=== PATIENT | male | born 1945 | race Caucasian/White ===

== ENCOUNTER 2017-01-21 04:21 | Inpatient (IN) | payer MEDICARE ==
[~2017-01-21] VITALS: Ht 175.3 cm; Wt 125.1 kg
[2017-01-21] MEDS ORDERED: ATOR20TA9 PO (05:25)
[2017-01-21] MEDS ORDERED: METO-99 PO (05:25)
[2017-01-21] MEDS ORDERED: METF500T4 PO (05:26)
[2017-01-21] MEDS ORDERED: TAMS-11 PO (05:27)
[2017-01-21] MEDS ORDERED: ROPI1TAB2 PO (05:27)
[2017-01-21] MEDS ORDERED: ASPI325T4 PO (05:28)
[2017-01-21] MEDS ORDERED: VENL150T PO (05:28)
[2017-01-21] MEDS ORDERED: HYDROcodone/APAP 10/325 MG TABLET ONE (05:42)
[2017-01-21] MEDS ORDERED: HYDROcodone/APAP 5/325 TABLET ONE (05:47)
[2017-01-21] MEDS ORDERED: MORPHINE SULFATE 4 MG/ML, 1ML ONE ×2 (05:54→21:58)
[2017-01-21] MEDS ORDERED: HYDROcodone/APAP 5/325 TABLET PO ONE (06:00)
[2017-01-21] MEDS ORDERED: MORPHINE SULFATE 4 MG/ML, 1ML IVPush ONE (06:00)
[2017-01-21 06:14] LABS: ASPARTATE AMINO TRANSFERASE 36 U/L (15-37); BLOOD UREA NITROGEN 22 mg/dL (7-18)
[2017-01-21] MEDS ORDERED: SODIUM CHLORIDE 0.9% 1,000 ML IV ONE ×2 (07:25→07:28)
[2017-01-21] MEDS ORDERED: SODIUM CHLORIDE FLUSH 10ML SYR IVF PRN (07:30)
[2017-01-21] MEDS ORDERED: HYDROmorphone 1 MG/ML, 1ML IVPush PRN (07:30)
[2017-01-21] MEDS ORDERED: SODIUM CHLORIDE 0.9% 1,000ML IVBOLUS ONE (07:30)
[2017-01-21] MEDS ORDERED: SODIUM CHLORIDE FLUSH 10ML SYR IVF ONE (07:30)
[2017-01-21] MEDS ORDERED: THIAMINE 100 MG in SODIUM CHLORIDE 0.9% 50 ML IVPB ONE (07:30)
[2017-01-21] MEDS ORDERED: ONDANSETRON 2MG/ML, 2ML IVPush ONE (07:30)
[2017-01-21] MEDS ORDERED: ONDANSETRON 2MG/ML, 2ML IVPush PRN ×2 (07:30→08:00)
[2017-01-21] MEDS ORDERED: LORazepam 2 MG/ML, 1ML IVPush PRN (08:00)
[2017-01-21] MEDS ORDERED: BISACODYL 10 MG SUPP PR PRN (08:00)
[2017-01-21] MEDS ORDERED: GLUCAGON 1 MG IM PRN (08:00)
[2017-01-21] MEDS ORDERED: DEXTROSE 50%, 50ML SYRINGE IVPush PRN (08:00)
[2017-01-21] MEDS ORDERED: PROMETHAZINE 25 MG/ML, 1ML IM PRN (08:00)
[2017-01-21] MEDS ORDERED: DEXTROSE 4 GM TAB.CHEW PO PRN (08:00)
[2017-01-21] MEDS ORDERED: METHOCARBAMOL 750 MG TABLET PO PRN (08:30)
[2017-01-21 08:46] LABS: IS PT STATUS REG ER OR PRE ER? YES
[2017-01-21 09:48] VITALS: BP 145/93
[2017-01-21] MEDS: morphine SULFATE 10 MG/ML, 1ML IVPush PRN ×3 (10:15→22:00)
[2017-01-21] MEDS: VENLAFAXINE 75 MG CAP ER PO SCH (10:16)
[2017-01-21] MEDS: LACTATED RINGERS 1,000 ML IV SCH ×3 (10:16→23:50)
[2017-01-21] MEDS: THIAMINE 100 MG in SODIUM CHLORIDE 0.9% 50 ML IV SCH (10:16)
[2017-01-21] MEDS: ROPINIROLE 1MG TABLET PO SCH (10:17)
[2017-01-21] MEDS: ENOXAPARIN 40 MG/0.4 ML SQ SCH (10:17)
[2017-01-21] MEDS: TAMSULOSIN 0.4 MG CAP.ER.24H PO SCH (10:17)
[2017-01-21] MEDS: METOPROLOL TARTRATE 100 MG TABLET PO SCH (10:17)
[2017-01-21] MEDS: SODIUM CHLORIDE FLUSH 10ML SYR IVF SCH ×2 (10:21→21:00)
[2017-01-21 10:52] VITALS: BP 145/93
[2017-01-21] MEDS: INSULIN ASPART 100 UNITS/ML, PEN SQ-INSULIN SCH ×3 (11:00→21:00)
[2017-01-21 11:45] VITALS: BP 122/79
[2017-01-21] MEDS: KETOROLAC 30 MG/1 ML IVPush PRN ×2 (18:01→23:50)
[2017-01-21 20:00] VITALS: BP 144/92
[2017-01-22] MEDS ORDERED: MORPHINE SULFATE 4 MG/ML, 1ML ONE (03:10)
[2017-01-22] MEDS: morphine SULFATE 10 MG/ML, 1ML IVPush PRN ×2 (03:13→21:20)
[2017-01-22 03:35] VITALS: BP 145/97
[2017-01-22 05:38] LABS: BLOOD UREA NITROGEN 21 mg/dL (7-18)
[2017-01-22] MEDS: INSULIN ASPART 100 UNITS/ML, PEN SQ-INSULIN SCH ×4 (07:00→21:00)
[2017-01-22] MEDS: THIAMINE 100 MG in SODIUM CHLORIDE 0.9% 50 ML IV SCH (09:19)
[2017-01-22] MEDS: ROPINIROLE 1MG TABLET PO SCH (09:19)
[2017-01-22] MEDS: METOPROLOL TARTRATE 100 MG TABLET PO SCH (09:19)
[2017-01-22] MEDS: VENLAFAXINE 75 MG CAP ER PO SCH (09:19)
[2017-01-22] MEDS: SODIUM CHLORIDE FLUSH 10ML SYR IVF SCH ×2 (09:19→21:19)
[2017-01-22] MEDS: TAMSULOSIN 0.4 MG CAP.ER.24H PO SCH (09:19)
[2017-01-22] MEDS: ENOXAPARIN 40 MG/0.4 ML SQ SCH (10:30)
[2017-01-22 10:49] VITALS: BP 146/95
[2017-01-22 11:35] LABS: IS PT STATUS REG ER OR PRE ER? NO
[2017-01-22 14:37] VITALS: BP 142/95
[2017-01-22 20:00] VITALS: BP 150/91
[2017-01-23 02:00] VITALS: BP_SYST 130; BP_SYST 138; BP_DIAS 66; BP_DIAS 86
[2017-01-23] MEDS: INSULIN ASPART 100 UNITS/ML, PEN SQ-INSULIN SCH ×4 (07:00→21:34)
[2017-01-23 08:50] VITALS: BP 134/87
[2017-01-23] MEDS: METOPROLOL TARTRATE 100 MG TABLET PO SCH (08:51)
[2017-01-23] MEDS: ROPINIROLE 1MG TABLET PO SCH (08:51)
[2017-01-23] MEDS: TAMSULOSIN 0.4 MG CAP.ER.24H PO SCH (08:51)
[2017-01-23] MEDS: VENLAFAXINE 75 MG CAP ER PO SCH (08:51)
[2017-01-23] MEDS: KETOROLAC 30 MG/1 ML IVPush PRN (08:52)
[2017-01-23] MEDS: SODIUM CHLORIDE FLUSH 10ML SYR IVF SCH ×2 (08:52→21:33)
[2017-01-23] MEDS: ENOXAPARIN 40 MG/0.4 ML SQ SCH (11:36)
[2017-01-23] MEDS: AZITHROMYCIN 500 MG TABLET PO SCH (12:00)
[2017-01-23] MEDS ORDERED: OMNIPAQUE 350 MG/ML, 100ML BOTTLE ONE (12:38)
[2017-01-23 14:00] VITALS: BP 136/91
[2017-01-23] MEDS ORDERED: GUAIFENESIN/DM 200-20MG, 10ML UDC PO PRN (14:30)
[2017-01-23] MEDS: BENZONATATE 100 MG CAPSULE PO SCH ×2 (16:00→21:00)
[2017-01-23 20:00] VITALS: BP 144/90
[2017-01-23] MEDS: OXYcodone IR 5MG TABLET PO PRN (21:34)
[2017-01-24 02:00] VITALS: BP 144/75
[2017-01-24 06:49] VITALS: BP 160/98
[2017-01-24] MEDS: INSULIN ASPART 100 UNITS/ML, PEN SQ-INSULIN SCH ×2 (07:00→12:24)
[2017-01-24] MEDS: VENLAFAXINE 75 MG CAP ER PO SCH (09:50)
[2017-01-24] MEDS: TAMSULOSIN 0.4 MG CAP.ER.24H PO SCH (09:51)
[2017-01-24] MEDS: ROPINIROLE 1MG TABLET PO SCH (09:51)
[2017-01-24] MEDS: METOPROLOL TARTRATE 100 MG TABLET PO SCH (09:51)
[2017-01-24] MEDS: BENZONATATE 100 MG CAPSULE PO SCH (09:52)
[2017-01-24] MEDS: AZITHROMYCIN 500 MG TABLET PO SCH (09:53)
[2017-01-24] MEDS: SODIUM CHLORIDE FLUSH 10ML SYR IVF SCH (09:54)
[2017-01-24] MEDS ORDERED: OXYC5TAB3 PO (10:31)
[2017-01-24] MEDS ORDERED: ALBU8.5H3 INH (10:31)
[2017-01-24] MEDS ORDERED: BENZ100C4 PO (10:31)
[2017-01-24] MEDS ORDERED: PRED20TA PO (10:31)
[2017-01-24] MEDS ORDERED: METH750T2 PO (10:31)
[2017-01-24] MEDS ORDERED: DOXY100C2 PO (10:31)
[2017-01-24] MEDS: OXYcodone IR 5MG TABLET PO PRN (11:48)
== END 2017-01-24 14:03 | disposition home or self-care (01) | DRG 604 ==
LOC: ED 06:25 → EDIP 07:28 → 4WST 09:20
PROVIDERS: ADMIT Internal Medicine
DX: S30.1XXA Contusion of abdominal wall, initial encounter (principal); K85.20 Alcohol induced acute pancreatitis without necrosis or infection; D68.59 Other primary thrombophilia; E78.5 Hyperlipidemia, unspecified; I10 Essential (primary) hypertension; D64.9 Anemia, unspecified; E11.9 Type 2 diabetes mellitus without complications; F32.9 Major depressive disorder, single episode, unspecified; E78.00 Pure hypercholesterolemia, unspecified; F12.90 Cannabis use, unspecified, uncomplicated; G25.81 Restless legs syndrome; I48.2 Chronic atrial fibrillation; N40.0 Benign prostatic hyperplasia without lower urinary tract symptoms; X58.XXXA Exposure to other specified factors, initial encounter; Y93.89 Activity, other specified; Y92.89 Other specified places as the place of occurrence of the external cause; Z79.82 Long term (current) use of aspirin; Z79.899 Other long term (current) drug therapy
CPT/HCPCS: 36415; 71010; 74177; 76700; 80048; 80053; 80061; 81003; 82962; 83690; 83735; 84100; 84484; 85018; 85025; 85379; 85610; 93005; 93306; 96374; J1650; J1815; J1885; J3411; Q9967; J2270; J7030; J7120; J7512

== ENCOUNTER → 2017-04-14 | Outpatient (CLI) | payer MEDICARE ==
[~2017-04-14] MED LIST: ALBU8.5H3 INH; ASPI325T4 PO; ATOR20TA9 PO; BENZ100C4 PO; DOXY100C2 PO; METF500T4 PO; METH750T2 PO; METO-99 PO; OXYC5TAB3 PO; PRED20TA PO; ROPI1TAB2 PO; TAMS-11 PO; VENL150T PO
== END | disposition home or self-care (01) ==
LOC: CFH 08:19
PROVIDERS: ATTEND Physician Assistant
DX: K82.4 Cholesterolosis of gallbladder (principal)
CPT/HCPCS: 76700

== ENCOUNTER 2020-10-23 13:14 | Emergency (ER) | payer MEDICARE ==
[~2020-10-23] VITALS: Ht 170.2 cm; Wt 112.2 kg
[~2020-10-23 13:14] MED LIST changes: -ALBU8.5H3 INH; +ALBU8.5H8 INH; +ASPI325T17 PO; -ASPI325T4 PO; +ATOR20TA37 PO; -ATOR20TA9 PO; +BENZ-17 PO; -BENZ100C4 PO; +METF500T17 PO; -METF500T4 PO; +METH-640 PO; -METH750T2 PO; -OXYC5TAB3 PO; +OXYC5TAB98 PO; -ROPI1TAB2 PO; +ROPI1TAB4 PO
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
[2020-10-23] MEDS ORDERED: MECLIZINE CHEWABLE 25 MG TAB ONE (13:53)
[2020-10-23] MEDS ORDERED: MECLIZINE CHEWABLE 25 MG TAB PO ONE (14:00)
[2020-10-23 14:08] LABS: BASOPHILS % (AUTO) 1 % (0-1); EOSINOPHILS % (AUTO) 4 % (1-7); LYMPHOCYTES % (AUTO) 20 % (22-44); MEAN CORPUSCULAR HEMOGLOBIN 32.5 pg (27.5-34.5); MEAN CORPUSCULAR HGB CONC 33.5 g/dL (33.2-36.2); MEAN PLATELET VOLUME 7.8 fL (7.4-10.4); MONOCYTES % (AUTO) 9 % (2-9); NEUTROPHILS % (AUTO) 67 % (42-75); PLATELET COUNT 198 x10^3/uL (130-400); RED BLOOD COUNT 4.96 x10^6/uL (4.38-5.82); RED CELL DISTRIBUTION WIDTH 13.5 % (9.4-14.8)
[2020-10-23 14:09] LABS: MD NO
[2020-10-23 14:18] LABS: ALBUMIN 3.8 g/dL (3.4-5.0); ANION GAP 6 mmol/L (5-15); CALCIUM 8.8 mg/dL (8.5-10.1); CHLORIDE 103 mmol/L (98-107); CREATININE 1.12 mg/dL (0.7-1.3)
--- NOTE | 2020-10-23 14:23 | NUR ---
Ptresting, waiting for CT
[2020-10-23 14:40] VITALS: BP 127/86
--- NOTE | 2020-10-23 14:40 | NUR ---
PT RETURNS FROM CT
== END 2020-10-23 16:11 | disposition home or self-care (01) ==
LOC: ED 15:50
DX: S00.03XA Contusion of scalp, initial encounter (principal); R42 Dizziness and giddiness; R51.9 Headache, unspecified; R06.89 Other abnormalities of breathing; I48.91 Unspecified atrial fibrillation; I10 Essential (primary) hypertension; E11.9 Type 2 diabetes mellitus without complications; E78.00 Pure hypercholesterolemia, unspecified; W01.0XXA Fall on same level from slipping, tripping and stumbling without subsequent striking against object, initial encounter; Y93.89 Activity, other specified; Y92.89 Other specified places as the place of occurrence of the external cause; Y99.8 Other external cause status
CPT/HCPCS: 36415; 70450; 71045; 80048; 82040; 85025; 93005; 99285

== ENCOUNTER 2020-11-07 11:33 | Emergency (ER) | payer MEDICARE ==
[~2020-11-07] VITALS: Ht 170.2 cm; Wt 110.7 kg
[2020-11-07 12:35] VITALS: BP 113/77
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
--- NOTE | 2020-11-07 12:54 | NUR ---
Patient given discharge instructions and Rx, they have confirmed that they understand the instructions. Patient ambulatory with steady gait.
== END 2020-11-07 13:04 | disposition home or self-care (01) ==
LOC: ED 13:00
DX: R42 Dizziness and giddiness (principal); I48.91 Unspecified atrial fibrillation; E11.9 Type 2 diabetes mellitus without complications; I10 Essential (primary) hypertension; E78.00 Pure hypercholesterolemia, unspecified
CPT/HCPCS: 93005; 99283

== ENCOUNTER 2020-12-25 16:49 | Outpatient (CLI) | payer MEDICARE | END 2020-12-25 23:59 | disposition home or self-care (01) | LOC: RAD 16:49 | PROVIDERS: ATTEND Nurse Practitioner Family | DX: I65.23 Occlusion and stenosis of bilateral carotid arteries (principal); R42 Dizziness and giddiness; E11.22 Type 2 diabetes mellitus with diabetic chronic kidney disease; I12.9 Hypertensive chronic kidney disease with stage 1 through stage 4 chronic kidney disease, or unspecified chronic kidney disease; R53.82 Chronic fatigue, unspecified; Z91.81 History of falling; N18.9 Chronic kidney disease, unspecified | CPT/HCPCS: 93880 ==